=== PATIENT | male | born 1955 | race Caucasian/White ===

== ENCOUNTER 2018-08-29 14:06 | Emergency (ER) | payer MEDICARE, MEDICAID ==
[2018-08-29 15:11] LABS: #Basophils 0.1 thou/uL (0.0-0.2); #Eosinphils 0.2 thou/uL (0.0-0.7); #Lymphocytes 1.2 thou/uL (1.20-3.40); #Monocytes 0.8 thou/uL (0.11-0.59); #Neutrophils 2.9 thou/uL (1.40-6.50); %Basophils 1.3 % (0.0-1.0); %Eosinophils 4.4 % (0.0-10.0); %Lymphocytes 22.5 % (21.0-51.0); %Monocytes 14.7 % (0.0-10.0); %Neutrophils 57.1 % (42.0-75.0); Hemoglobin 12.5 g/dL (14.0-18.0); Mean Corpuscular HGB CONC 33.7 g/dL (32.0-36.0); Mean Corpuscular Hemoglobin 33.5 pg (27.0-31.0); Mean Corpuscular Volume 99.4 fL (78.0-98.0); Mean Platelet Volume 5.7 fL (7.4-10.4); Platelet Count 156 thou/uL (130-400); Red Blood Cell (RBC) Count 3.74 mill/uL (4.70-6.10); White Blood Cell (WBC) Count 5.1 thou/uL (4.8-10.8)
[2018-08-29 15:20] LABS: ALT (SGPT) 49 U/L (8-55); AST (SGOT) 73 U/L (5-34); Alkaline Phosphatase 169 U/L (40-150); Anion Gap 13 mmol/L (10-20); BUN (Urea Nitrogen) 6 mg/dL (8.4-25.7); Bilirubin, Total 1.3 mg/dL (0.2-1.2); Calc. Creatinine Clearance 0 mL/min (70-130); Calcium 8.6 mg/dL (7.8-10.44); Carbon Dioxide 20 mmol/L (23-31); Chloride 106 mmol/L (98-107); Estimated GFR-MDRD Greater than 90; Globulin 5.7 g/dL (2.4-3.5); Glucose 115 mg/dL (80-115); Potassium 3.3 mmol/L (3.5-5.1); Protein, Total 8.7 g/dL (5.8-8.1); Sodium 136 mmol/L (136-145)
--- NOTE | 2018-08-29 15:21 | CT ---
CT the abdomen and pelvis without IV contrast utilizing a renal calculus protocol 08/29/2018 2:37 PM INDICATION: Back pain and flank pain COMPARISON: None. TECHNIQUE: Multiple CT images were obtained abdomen and pelvis without IV contrast. Axial, coronal re formatted images were constructed from the raw data. FINDINGS: This examination is limited for the evaluation of solid organs and vascular structures due to the lac k of intravenous contrast which is standard for urinary calculus assessment CT. ABDOMEN: Lung bases: Clear Liver: There is a cirrhotic morphology to the liver Gallbladder: Contracted Pancreas: Normal. Adrenal glands: Normal. Spleen: Enlarged measuring 16 cm in its greatest craniocaudad dimension. Kidneys: There is a 1.2 mm nonobstructing calculus involving the superior pole of the left kidney. Un opacified right kidneys unremarkable. No hydronephrosis is evident. No gross ureteral calculus is noted. Retroperitoneum of the upper abdomen: There are moderate vascular calcifications involving the abdomi nal pelvic vasculature. No lymphadenopathy is evident. Pelvis: Small and large bowel: There is wall thickening involving the sigmoid colon with scattered diverticul a and mild pericolonic inflammatory stranding. Bladder: Normal. Rectal and perirectal soft tissues:Normal. Reproductive structures: Normal. Free fluid in pelvis: No free fluid is evident. Lymphadenopathy pelvis: No lymphadenopathy is evident. Osseous structures: There is a moderate to severe wedge compression abnormality of L1 of undetermined chronicity. The vertebral body is diffusely sclerotic possibly indicative of a subacute to chronic fracture. There is a pain pump entering into the spinal canal at T12-L1 and projecting up to T10. 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 There is scattered degenerative and osteoarthritic changes. IMPRESSION: 1. Wall thickening involving the sigmoid colon with scattered colonic diverticula and mild pericoloni c inflammatory stranding raises suspicion for noncomplicated sigmoid diverticulitis. 2. Age-indeterminate moderate to severe wedge compression abnormality of L1 3. Left nephrolithiasis 4. Findings of cirrhosis and portal hypertension
[2018-08-29] MEDS ORDERED: Sodium Chloride 0.9% 1,000 ML ONE (15:31)
[2018-08-29] MEDS ORDERED: Amoxicillin/Potassium Clav 875 MG TAB ONE (15:31)
[2018-08-29] MEDS ORDERED: Ketorolac Tromethamine 30 MG/ML VIAL ONE (15:42)
[2018-08-29 16:26] LABS: Bilirubin Negative (Negative); Blood, Urine Negative (Negative); Clarity Clear (Clear); Glucose, Urine (Dipstick) Negative (Negative); Leukocyte Negative (Negative); Nitrite Negative (Negative); Protein, Urine (Dipstick) Negative (Neg-Trace); Urobilinogen > or = 8.0 mg/dL (0.2-1.0); pH, Urine 6.5 (5.0-9.0)
== END 2018-08-29 16:58 | disposition home or self-care (01) ==
LOC: NAV ERS 14:06
DX: K57.32 Diverticulitis of large intestine without perforation or abscess without bleeding (principal); F17.210 Nicotine dependence, cigarettes, uncomplicated
CPT/HCPCS: 51798; 74176; 80053; 81003; 85025; 96361; 96374; J1885; J7050

== ENCOUNTER 2018-08-30 11:46 | Emergency (ER) | payer MEDICARE, MEDICAID ==
[2018-08-30] MEDS ORDERED: Gabapentin 300 MG CAP PO SCH (12:30)
[2018-08-30] MEDS ORDERED: Baclofen 10 MG TAB PO SCH (12:30)
== END 2018-08-30 12:50 | disposition home or self-care (01) ==
LOC: NAV ERS 11:46
DX: M54.16 Radiculopathy, lumbar region (principal); G54.6 Phantom limb syndrome with pain; F17.210 Nicotine dependence, cigarettes, uncomplicated
CPT/HCPCS: 99283